=== PATIENT | male | born 1945 | race Caucasian/White ===

== ENCOUNTER 2017-03-27 13:03 | Emergency (ER) | payer MEDICARE, OTHER ==
[~2017-03-27] VITALS: Ht 172.7 cm; Wt 83.0 kg
[~2017-03-27 13:03] MED LIST: ASPI81TA82 PO; ATOR20TA42 PO; NIAC500 PO; SULF1TAB47 PO; TAB-TAB PO
[2017-03-27 13:08] VITALS: BP 140/81; PULSE 85; RESP 16; TEMP 97.6; O2SAT 97
[2017-03-27] MEDS ORDERED: ATOR20TA15 PO (13:33)
[2017-03-27] MEDS ORDERED: ASPI-516 CHEW (13:33)
[2017-03-27] MEDS ORDERED: NIAC500 PO (13:33)
[2017-03-27] MEDS ORDERED: KETOROLAC TROMETHAMINE 30 MG/ML (IVP) VIAL IVP ONE (14:00)
[2017-03-27] MEDS ORDERED: DICYCLOMINE HCL 10 MG CAP PO ONE (14:00)
[2017-03-27] MEDS ORDERED: ONDANSETRON HCL 4 MG/2 ML VIAL IVP ONE (14:00)
[2017-03-27] MEDS ORDERED: SODIUM CHLORIDE 0.9% FLUSH 10 ML FLUSH IV FLUSH PRN (14:00)
[2017-03-27 14:07] LABS: AUTOMATED NEUTROPHIL # 5.2 TH/MM3 (1.8-7.7); BASOPHIL % 0.4 % (0.0-2.0); EOSINOPHIL # 0.3 TH/MM3 (0-0.4); EOSINOPHIL % 3.8 % (0.0-4.0); HEMATOCRIT 47.9 % (39.0-51.0); HEMO FLAGS DIFF FINAL; LYMPH % 19.1 % (9.0-44.0); LYMPHOCYTE # 1.5 TH/MM3 (1.0-4.8); MEAN CELL VOLUME 93.7 FL (80.0-100.0); MEAN CORPUSCULAR HEMOGLOBIN 31.2 PG (27.0-34.0); MEAN CORPUSCULAR HGB CONC 33.3 % (32.0-36.0); MONO % 7.3 % (0.0-8.0); NEUT % 69.4 % (16.0-70.0); PLATELET COUNT 214 TH/MM3 (150-450); RED BLOOD COUNT 5.11 MIL/MM3 (4.50-5.90); RED CELL DISTRIBUTION WIDTH 13.2 % (11.6-17.2); WHITE BLOOD COUNT 7.6 TH/MM3 (4.0-11.0)
[2017-03-27 14:10] LABS: BLOOD, URINE NEG (NEG); GLUCOSE,URINE NEG (NEG); KETONE, URINE NEG (NEG); NITRITE,URINE NEG (NEG)
--- NOTE | 2017-03-27 14:15 | PD ---
HPI Chief Complaint: Abdominal Pain Time Seen by Provider: 13:28 Travel History International Travel<30 days: No Contact w/Intl Traveler<30days: No Traveled to known affect area: No History of Present Illness HPI patient is a 71-year-old male with history of recurrent diverticulitis presents emergency department for left lower quadrant abdominal pain. Patient states 6 weeks ago he was in the hospital and had CAT scan of his abdomen showing diverticulitis, he is completed a course of Cipro and Flagyl states been several days since he had pain, he states he felt well enough to go golfing yesterday but today he's been having some abdominal cramping in a bandlike distribution over his low abdomen. Endorses diarrhea without blood in the stool or melena, endorses nausea without vomiting. Denies any fever. He states his been hospitalized 3 times for his diverticulitis in the past, he does not have a physician in town states he only lives here half of the year. PFSH Past Medical History Hx Anticoagulant Therapy: Yes (BABY ASA DAILY) Cancer: Yes Cardiovascular Problems: Yes (CHOL) High Cholesterol: Yes Coronary Artery Disease: Yes Diverticulitis: Yes (EPISODE 6 WEKS AGO) Immunizations Current: Yes Influenza Vaccination: Yes Past Surgical History Appendectomy: Yes (DUE TO RUPTURED APPY) Social History Alcohol Use: Yes (2-3 PER DAY) Tobacco Use: Yes (CIGAR, OCCASIONALLY) Substance Use: No Allergies-Medications (Allergen,Severity, Reaction): Coded Allergies: cephalexin (Unverified Allergy, Severe, HIVES, 03/27/17) doxycycline (Unverified Allergy, Severe, HIVES, 03/27/17) minocycline (Unverified Allergy, Severe, HIVES, 03/27/17) tigecycline (Unverified Allergy, Severe, HIVES, 03/27/17) levofloxacin (Unverified Allergy, Intermediate, ITCH AND RASH, 03/27/17) Reported Meds & Prescriptions Reported Meds & Active Scripts Active Bentyl (Dicyclomine HCl) 10 Mg Cap 10 Mg PO TID PRN Reported Niaspan (Niacin) 500 Mg Tab 500 Mg PO HS Atorvastatin (Atorvastatin Calcium) 20 Mg Tab 20 Mg PO HS Aspirin 81 Mg Chew 81 Mg CHEW DAILY Review of Systems Except as stated in HPI: all other systems reviewed are Neg Physical Exam Narrative GENERAL: Well-developed well-nourished in obvious distress, quite pleasant. SKIN: Focused skin assessment warm/dry. HEAD: Atraumatic. Normocephalic. EYES: Pupils equal and round. No scleral icterus. No injection or drainage. ENT: No nasal bleeding or discharge. Mucous membranes pink and moist. NECK: Trachea midline. No JVD. CARDIOVASCULAR: Regular rate and rhythm. No murmur appreciated. RESPIRATORY: No accessory muscle use. Clear to auscultation. Breath sounds equal bilaterally. GASTROINTESTINAL: Abdomen soft, non-tender, nondistended. Hepatic and splenic margins not palpable. No CVA tenderness no rebound no percussive tenderness, no guarding, trivial tenderness in the left lower quadrant. MUSCULOSKELETAL: No obvious deformities. No clubbing. No cyanosis. No edema. NEUROLOGICAL: Awake and alert. No obvious cranial nerve deficits. Motor grossly within normal limits. Normal speech. PSYCHIATRIC: Appropriate mood and affect; insight and judgment normal. Data Data Last Documented VS Vital Signs Date Time Temp Pulse Resp B/P (MAP) Pulse Ox O2 Delivery O2 Flow Rate FiO2 03/27/17 16:34 03/27/17 16:01 86 16 97 Room Air 03/27/17 13:08 97.6 Orders Orders Complete Blood Count With Diff (03/27/17 13:46) Comprehensive Metabolic Panel (03/27/17 13:46) Urinalysis - C+S If Indicated (03/27/17 13:46) Ct Abd/Pel W Iv Contrast(Rout) (03/27/17 13:46) Iv Access Insert/Monitor (03/27/17 13:46) Ecg Monitoring (03/27/17 13:46) Oximetry (03/27/17 13:46) Ondansetron Inj (Zofran Inj) (03/27/17 14:00) Sodium Chloride 0.9% Flush (Ns Flush) (03/27/17 14:00) Dicyclomine (Bentyl) (03/27/17 14:00) Ketorolac Inj (Toradol Inj) (03/27/17 14:00) Iohexol 350 Inj (Omnipaque 350 Inj) (03/27/17 15:24) Ed Discharge Order (03/27/17 16:21) Labs Laboratory Tests Test 03/27/17 13:50 03/27/17 14:00 Urine Collection Type CLEAN CATCH Urine Color YELLOW Urine Turbidity CLEAR Urine pH 6.0 Urine Specific [place] 1.006 Urine Protein NEG mg/dL Urine Glucose (UA) NEG mg/dL Urine Ketones NEG mg/dL Urine Occult Blood NEG Urine Nitrite NEG Urine Bilirubin NEG Urine Leukocyte Esterase NEG Urine RBC 0-3 /hpf Urine Squamous Epithelial Cells 0-5 /hpf Microscopic Urinalysis Comment CULT NOT INDICATED Urine Collection Time 13:50 White Blood Count 7.6 TH/MM3 Red Blood Count 5.11 MIL/MM3 Hemoglobin 15.9 GM/DL Hematocrit 47.9 % Mean Corpuscular Volume 93.7 FL Mean Corpuscular Hemoglobin 31.2 PG Mean Corpuscular Hemoglobin Concent 33.3 % Red Cell Distribution Width 13.2 % Platelet Count 214 TH/MM3 Mean Platelet Volume 7.1 FL Neutrophils (%) (Auto) 69.4 % Lymphocytes (%) (Auto) 19.1 % Monocytes (%) (Auto) 7.3 % Eosinophils (%) (Auto) 3.8 % Basophils (%) (Auto) 0.4 % Neutrophils # (Auto) 5.2 TH/MM3 Lymphocytes # (Auto) 1.5 TH/MM3 Monocytes # (Auto) 0.6 TH/MM3 Eosinophils # (Auto) 0.3 TH/MM3 Basophils # (Auto) 0.0 TH/MM3 CBC Comment DIFF FINAL Differential Comment Blood Urea Nitrogen 11 MG/DL Creatinine 0.92 MG/DL Random Glucose 126 MG/DL Total Protein 8.0 GM/DL Albumin 4.2 GM/DL Calcium Level 9.3 MG/DL Alkaline Phosphatase 68 U/L Aspartate Amino Transf (AST/SGOT) 23 U/L Alanine Aminotransferase (ALT/SGPT) 42 U/L Total Bilirubin 0.7 MG/DL Sodium Level 136 MEQ/L Potassium Level 4.1 MEQ/L Chloride Level 102 MEQ/L Carbon Dioxide Level 26.8 MEQ/L Anion Gap 7 MEQ/L Estimat Glomerular Filtration Rate 81 ML/MIN MDM Medical Decision Making Medical Screen Exam Complete: Yes Emergency Medical Condition: Yes Differential Diagnosis Diverticulitis, diverticulosis, constipation, abscess, constipation, acute abdomen is unlikely though. Narrative Course Patient roomed in the ER, has history of diverticulitis and feels similiar. CBC , CMP, UA unremarkable. CT scan: Last 24 hours Impressions Abdomen/Pelvis CT 03/27/17 1346 Signed Impressions: Service Date/Time: Monday, March 27, 2017 15:17 - CONCLUSION: 1. Punctate nonobstructing posterior right mid renal calyceal calculus. 2. Extensive colonic diverticulosis without definite evidence for diverticulitis at this time. 3. Additional ancillary findings include decreased hepatic attenuation consistent with hepatic steatosis, subcentimeter lesion in segment 2 of the liver which is too small to fully characterize, and probable small periumbilical anterior abdominal hernia. Jose Jenkins MD Discussed the results with the patient who is feeling better. Discussed need for follow up liver lesion with repeat imaging and discussed return to ED criteria. Discussed symptomatic management at home. Follow up with GI doctor or PCP Diagnosis Primary Impression: Abdominal cramping Referrals: Maria De Jesus Garay MD Med/Other Pt SpecificInfo: Prescription(s) given Scripts Dicyclomine (Bentyl) 10 Mg Cap 10 MG PO TID Y for Bowel Management, #20 CAP 0 Refills Prov: Braulio Iraheta MD 03/27/17 Disposition: 01 DISCHARGE HOME Condition: Stable Braulio Iraheta MD Mar 27, 2017 14:15
[2017-03-27 14:17] LABS: METHOD OF COLLECTION CLEAN CATCH; URINE COLOR YELLOW (YELLW/STRAW)
[2017-03-27 14:18] LABS: COMMENT (UR) CULT NOT INDICATED; CULTURE IF INDICATED CULT NOT INDICATED; RBC, URINE 0-3 /hpf (0-3); SQUAMOUS EPITHELIAL CELL URINE 0-5 /hpf (0-5)
[2017-03-27 14:20] LABS: CHLORIDE 102 MEQ/L (98-107); POTASSIUM 4.1 MEQ/L (3.5-5.1); SODIUM (NA) 136 MEQ/L (136-145)
[2017-03-27 14:23] LABS: ANION GAP 7 MEQ/L (5-15); BICARBONATE 26.8 MEQ/L (21.0-32.0); BLOOD UREA NITROGEN 11 MG/DL (7-18)
[2017-03-27 14:25] VITALS: BP 98/76; PULSE 86; RESP 16; O2SAT 96
[2017-03-27 14:26] VITALS: RESP 18; O2SAT 96
[2017-03-27 14:26] LABS: ALT (GPT) 42 U/L (12-78); AST (GOT) 23 U/L (15-37)
[2017-03-27 14:27] LABS: GLOMERULAR FILTRATION RATE 81 ML/MIN (>89)
[2017-03-27 14:28] LABS: TOTAL BILIRUBIN ADULT 0.7 MG/DL (0.2-1.0)
[2017-03-27 14:29] LABS: ALKALINE PHOSPHATASE 68 U/L (45-117)
[2017-03-27] MEDS ORDERED: IOHEXOL 350 MG/ML 10 ML VIAL (for RAD DIAG) IVCONTRAST ONE (15:24)
[2017-03-27 16:01] VITALS: BP 108/69; PULSE 86; RESP 16; O2SAT 97
--- NOTE | 2017-03-27 16:06 | RADRPT ---
EXAM DATE/TIME: 03/27/2017 15:17 [facility] COMPARISON: No previous studies available for comparison. INDICATIONS : Diffuse abdominal pain. IV CONTRAST: 90 cc Omnipaque 350 (iohexol) IV ORAL CONTRAST: No oral contrast ingested. RADIATION DOSE: 15.91 CTDIvol (mGy) MEDICAL HISTORY : Diverticulitis. Cardiovascular disease SURGICAL HISTORY : Appendectomy. ENCOUNTER: Initial ACUITY: 1 day PAIN SCALE: 9/10 LOCATION: Diffuse abdomen. TECHNIQUE: Volumetric scanning of the abdomen and pelvis was performed. Using automated exposure control and ad justment of the mA and/or kV according to patient size, radiation dose was kept as low as reasonably achievable to obtain optimal diagnostic quality images. DICOM format image data is available electro nically for review and comparison. FINDINGS: LOWER LUNGS: The visualized lower lungs are clear. LIVER: Diffusely decreased hepatic attenuation without evidence for significant volume loss. Subcentimeter h ypodense lesion in segment 2 of the liver which is too small to fully characterize. Gallbladder is un remarkable by CT. SPLEEN: Normal size without lesion. PANCREAS: Within normal limits. KIDNEYS: Punctate calcified density in the posterior right mid kidney which may reflect a small non-obstructin g calyceal calculus. Kidneys are otherwise unremarkable without evidence of hydronephrosis. ADRENAL GLANDS: Within normal limits. VASCULAR: There is no aortic aneurysm. BOWEL/MESENTERY: Moderate severe sigmoid and extensive scattered diverticula throughout the colon. No definitive infla mmatory change to suggest diverticulitis. Small bowel contrast is noted in the distal ileum likely fr om recent contrast ingestion. No free fluid adrenal fluid collection. No free air. ABDOMINAL WALL: Small periumbilical anterior abdominal hernia containing a tiny portion of a normal appearing small b owel. RETROPERITONEUM: There is no lymphadenopathy. BLADDER: No wall thickening or mass. REPRODUCTIVE: Postsurgical features of apparent prior prostatectomy. INGUINAL: There is no lymphadenopathy or hernia. MUSCULOSKELETAL: Within normal limits for patient age. CONCLUSION: 1. Punctate nonobstructing posterior right mid renal calyceal calculus. 2. Extensive colonic diverticulosis without definite evidence for diverticulitis at this time. 3. Additional ancillary findings include decreased hepatic attenuation consistent with hepatic steato sis, subcentimeter lesion in segment 2 of the liver which is too small to fully characterize, and pro bable small periumbilical anterior abdominal hernia. Jose Jenkins MD on March 27, 2017 at 15:56 Board Certified Radiologist. This report was verified electronically.
[2017-03-27] MEDS ORDERED: DICY10 PO (16:15)
== END 2017-03-27 16:36 | disposition home or self-care (01) ==
LOC: PHED 13:03
DX: R10.32 Left lower quadrant pain (principal); E78.00 Pure hypercholesterolemia, unspecified; Z72.0 Tobacco use; Z79.01 Long term (current) use of anticoagulants
CPT/HCPCS: 74177; 80053; 81001; 85025; 96374; 96375; 99285; J1885; J2405; Q9967